=== PATIENT | female | born 1980 | race Hispanic/Latino ===

== ENCOUNTER 2019-03-30 22:53 | Emergency (ER) | payer OTHER, SELFPAY ==
--- NOTE | 2019-03-31 00:43 | ER ---
Nurse's Notes [facility] Name: Nicci Sharif Age: 38 yrs Sex: Female : 1980 Arrival Date: 03/30/2019 Time: 23:00 Bed 14 Private MD: Diagnosis: Cracked tooth Presentation: 03/30 23:11 Presenting complaint: Patient states: right cheondoism pain and headache since today. pt ak1 c/o nausea due to headache. Transition of care: patient was not received from another setting of care. Onset of symptoms was March 30, 2019. Risk Assessment: Do you want to hurt yourself or someone else? Patient reports no desire to harm self or others. Initial Sepsis Screen: Does the patient meet any 2 criteria? No. Patient's initial sepsis screen is negative. Does the patient have a suspected source of infection? No. Patient's initial sepsis screen is negative. Care prior to arrival: None. 23:11 Acuity: ANNALISA 4 ak1 23:11 Method Of Arrival: Ambulatory ak1 Triage Assessment: 23:13 General: Appears in no apparent distress. Behavior is calm, cooperative. ak1 03/31 00:49 EENT: Reports pain in right jaw. 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 - Social history:: Smoking status: Patient/guardian denies using tobacco. - Ebola Screening: : No symptoms or risks identified at this time. Screenin:28 Abuse screen: Denies threats or abuse. Denies injuries from another. Nutritional rv screening: No deficits noted. Tuberculosis screening: No symptoms or risk factors identified. Fall Risk None identified. Assessment: 23:21 General: Appears in no apparent distress. comfortable, Behavior is calm, cooperative. rv Pain: Complains of pain in right jaw Pain radiates to head Pain currently is 8 out of 10 on a pain scale. Quality of pain is described as throbbing. Neuro: Level of Consciousness is awake, alert, obeys commands, Oriented to person, place, time, situation. Cardiovascular: Patient's skin is warm and dry. Respiratory: Airway is patent. GI: No signs and/or symptoms were reported involving the gastrointestinal system. : No signs and/or symptoms were reported regarding the genitourinary system. EENT: No signs and/or symptoms were reported regarding the EENT system. Derm: Skin is intact. Musculoskeletal: No signs and/or symptoms reported regarding the musculoskeletal system. Vital Signs: 23:11 BP 135 / 79; Pulse 80; Resp 16; Temp 97.9; Pulse Ox 100% on R/A; Weight 90.72 kg (R); ak1 Height 5 ft. 5 in. (165.10 cm) (R); Pain 9/10; 03/31 00:49 BP 128 / 82; Pulse 76; Resp 16; Temp 98; Pulse Ox 99% ; rv 03/30 23:11 Body Mass Index 33.28 (90.72 kg, 165.10 cm) ak1 ED Course: 03/30 23:00 Patient arrived in ED. es 23:11 Arm band placed on Patient placed in an exam room, on a stretcher, Patient notified of ak1 wait time. 23:12 Triage completed. ak1 23:21 Carlos Enrique Carpenter, KIMBERLEE is Primary Nurse. rv 23:28 Patient has correct armband on for positive identification. Placed in gown. Bed in low rv position. Call light in reach. Side rails up X 1. Adult w/ patient. Pulse ox on. NIBP on. 23:30 Mina Montalvo MD is Attending Physician. tw4 03/31 00:48 No provider procedures requiring assistance completed. Patient did not have IV access rv during this emergency room visit. Administered Medications: 00:47 Drug: [place] 5 mg-325 mg 2 tabs Route: PO; rv 00:47 Follow up: Response: Medication administered at discharge. rv Outcome: 00:41 Discharge ordered by . tw4 00:48 Discharged to home ambulatory, with family. rv 00:48 Condition: good 00:48 Discharge instructions given to patient, family, Instructed on discharge instructions, follow up and referral plans. medication usage, Demonstrated understanding of instructions, follow-up care, medications, Prescriptions given X 2. 00:50 Patient left the ED. rv Signatures: Donna Saleem Amber, RN RN ak1 Mina Montalvo MD MD tw4 Carlos Enrique Carpenter, KIMBERLEE RN rv
--- NOTE | 2019-03-31 00:43 | EDPHYS ---
Physician Documentation [facility] Name: Nicci Sharif Age: 38 yrs Sex: Female : 1980 Arrival Date: 03/30/2019 Time: 23:00 Bed 14 Private MD: ED Physician Mina Montalvo HPI: 03/31 03:45 This 38 yrs old Female presents to ER via Ambulatory with complaints of tw4 Toothache, Headache. 03:45 The patient presents with broken tooth/teeth. The problem is located in the upper right tw4 third molar. Onset: The symptoms/episode began/occurred today. Duration: The symptoms are continuous, and are steadily getting worse. Modifying factors: The symptoms are alleviated by nothing, the symptoms are aggravated by nothing. Associated signs and symptoms: The patient has no apparent associated signs or symptoms. Severity of symptoms: At their worst the symptoms were moderate, in the emergency department the symptoms are unchanged. The patient has not experienced similar symptoms in the past. 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 - Social history:: Smoking status: Patient/guardian denies using tobacco. - Ebola Screening: : No symptoms or risks identified at this time. ROS: 03/31 03:45 Constitutional: Negative for fever, chills, and weight loss, Cardiovascular: Negative tw4 for chest pain, palpitations, and edema, Respiratory: Negative for shortness of breath, cough, wheezing, and pleuritic chest pain, Abdomen/GI: Negative for abdominal pain, nausea, vomiting, diarrhea, and constipation, Back: Negative for injury and pain, MS/Extremity: Negative for injury and deformity, Skin: Negative for injury, rash, and discoloration, Neuro: Negative for headache, weakness, numbness, tingling, and seizure. ENT: Positive for dental pain, Negative for injury or acute deformity, drainage from ear(s), ear pain, foreign body sensation, Gum pain hearing loss, pulling at ears, Teeth pain tinnitus, nasal discharge, rhinorrhea, sinus congestion, sinus pain. Exam: 03:45 Constitutional: This is a well developed, well nourished patient who is awake, alert, tw4 and in no acute distress. Head/Face: Normocephalic, atraumatic. Eyes: Pupils equal round and reactive to light, extra-ocular motions intact. Lids and lashes normal. Conjunctiva and sclera are non-icteric and not injected. Cornea within normal limits. Periorbital areas with no swelling, redness, or edema. Neck: Trachea midline, no thyromegaly or masses palpated, and no cervical lymphadenopathy. Supple, full range of motion without nuchal rigidity, or vertebral point tenderness. No Meningismus. Chest/axilla: Normal chest wall appearance and motion. Nontender with no deformity. No lesions are appreciated. Cardiovascular: Regular rate and rhythm with a normal S1 and S2. No gallops, murmurs, or rubs. Normal PMI, no JVD. No pulse deficits. 03:45 ENT: External ear(s): are unremarkable, Ear canal(s): are normal, TM's: are normal, Nose: is normal, Mouth: is normal, Posterior pharynx: is normal, Dental exam: fractured teeth are noted, specifically the upper right third molar (#1). Vital Signs: 03/30 23:11 BP 135 / 79; Pulse 80; Resp 16; Temp 97.9; Pulse Ox 100% on R/A; Weight 90.72 kg (R); ak1 Height 5 ft. 5 in. (165.10 cm) (R); Pain 9/10; 03/31 00:49 BP 128 / 82; Pulse 76; Resp 16; Temp 98; Pulse Ox 99% ; rv 03/30 23:11 Body Mass Index 33.28 (90.72 kg, 165.10 cm) ak1 MDM: 03/30 23:30 Patient medically screened. tw4 03/31 00:40 Data reviewed: vital signs, nurses notes. Counseling: I had a detailed discussion with tw4 the patient and/or guardian regarding: the historical points, exam findings, and any diagnostic results supporting the discharge/admit diagnosis. 03:45 Differential diagnosis: dental caries, gingivitis, dental abscess. Data interpreted: tw4 Pulse oximetry: Interpretation: normal. Medication response: norco. Response to treatment: the patient's symptoms have mildly improved after treatment, and as a result, I will discharge patient. Special discussion: I discussed with the patient/guardian in detail that at this point there is no indication for admission to the hospital. It is understood, however, that if the symptoms persist or worsen the patient needs to return immediately for re-evaluation. Administered Medications: 00:47 Drug: [place] 5 mg-325 mg 2 tabs Route: PO; rv 00:47 Follow up: Response: Medication administered at discharge. rv Disposition: 03/31/19 00:41 Discharged to Home. Impression: Cracked tooth. - Condition is Stable. - Discharge Instructions: Dental Pain, Preventive Dental Care, Adult. - Prescriptions for Ibuprofen 800 mg Oral Tablet - take 1 tablet by ORAL route every 8 hours As needed take with food; 30 tablet. Tylenol- Codeine #3 300-30 mg Oral Tablet - take 2 tablet by ORAL route every 6 hours As needed; 6 tablet. - Medication Reconciliation Form, Thank You Letter, Antibiotic Education, Prescription Opioid Use form. - Follow up: Private Physician; When: Upon discharge from the Emergency Department; Reason: If symptoms return, Recheck today's complaints, Continuance of care. - Problem is new. - Symptoms have improved. Signatures: Emeli Fuentes RN RN ak1 Mina Montalvo MD MD tw4 Carlos Enrique Carpenter RN RN rv Corrections: (The following items were deleted from the chart) 00:50 00:41 03/31/2019 00:41 Discharged to Home. Impression: Cracked tooth. Condition is rv Stable. Forms are Medication Reconciliation Form, Thank You Letter, Antibiotic Education, Prescription Opioid Use. Follow up: Private Physician; When: Upon discharge from the Emergency Department; Reason: If symptoms return, Recheck today's complaints, Continuance of care. Problem is new. Symptoms have improved. tw4
[2019-03-31] MEDS ORDERED: HYDROCODONE/APAP 5/325 MG TAB ONE (01:01)
[2019-03-31 03:40] VITALS: BP 128/82; TEMP 98; O2SAT 99
== END 2019-03-31 00:50 | disposition home or self-care (01) ==
LOC: ER 22:53
DX: K03.81 Cracked tooth (principal)
CPT/HCPCS: 99283